=== PATIENT | female | born 1955 | race Caucasian/White ===

== ENCOUNTER 2021-03-09 16:50 | Outpatient (REF) | payer OTHER, SELFPAY ==
[2021-03-09 17:33] LABS: Influenza A PCR NEGATIVE (Negative); Influenza B PCR NEGATIVE (Negative); Resp Syncy Virus RNA Qual PCR NEGATIVE (Negative); SARS COV2 PCR INHOUSE NEGATIVE (Negative)
== END 2021-03-09 16:51 | disposition home or self-care (01) ==
LOC: HO.LNP 16:50
PROVIDERS: Visit Provider Physician Assistant Medical
DX: J06.9 Acute upper respiratory infection, unspecified (principal); Z20.822 Contact with and (suspected) exposure to COVID-19
CPT/HCPCS: 0241U

== ENCOUNTER 2022-05-02 10:32 | Outpatient (REF) | payer MEDICARE, MEDICAID, SELFPAY ==
--- NOTE | ~2022-05-02 | MR_ITS ---
EXAMINATION: MR CERVICAL SPINE WITHOUT CONTRAST CLINICAL INFORMATION: Radiculopathy, cervical region. COMPARISON: None available. TECHNIQUE: MRI of the cervical spine was performed using routine sequences without contrast. FINDINGS: The cervical vertebral bodies maintain normal heights and alignment. There is significant disc height loss at C5-C6 and C6-C7 with chronic degenerative endplate changes. No bone marrow edema is seen. The cervical cord signal appears normal. The imaged portions of the intracranial contents and extraspinal soft tissues are within normal limits. SPINAL LEVELS: C2-C3: No posterior disc abnormality. No spinal canal or neural foraminal stenosis. C3-C4: No posterior disc abnormality. No spinal canal or neural foraminal stenosis. C4-C5: Mild disc osteophyte complex and uncovertebral hypertrophy. Mild spinal canal stenosis. No neural foraminal stenosis. C5-C6: Mild disc osteophyte complex with uncovertebral hypertrophy. Mild to moderate spinal canal stenosis and to moderate bilateral neural foraminal stenosis. C6-C7: Mild disc osteophyte complex with uncovertebral hypertrophy. Mild spinal canal stenosis and mild left neural foraminal stenosis. C7-T1: No posterior disc abnormality. No spinal canal or neural foraminal stenosis. MR/MR cervical spine wo con IMPRESSION: Multilevel degenerative spondylosis most advanced at C5-C6 where there is mild to moderate spinal canal stenosis and moderate bilateral neural foraminal stenosis.
== END 2022-05-02 10:33 | disposition home or self-care (01) ==
LOC: HO.MRI 10:32
PROVIDERS: PCP Internal Medicine; Visit Provider Internal Medicine
DX: M50.20 Other cervical disc displacement, unspecified cervical region (principal); M54.12 Radiculopathy, cervical region
CPT/HCPCS: 72141

== ENCOUNTER 2022-12-14 08:12 | Outpatient (AMB) | payer MEDICARE, MEDICAID, SELFPAY ==
--- NOTE | 2022-12-14 08:34 | MHC.PC.OV ---
Vital Signs 12/14/22 08:35 Height 5 ft 3.5 in Weight 216 lb 4 oz BMI 37.7 BP 120/70 Blood Pressure Location Rt brachial Position Sitting Pulse 75 Pulse Source Pulse Oximeter Pulse Oximetry (%) 98 Oxygen Delivery Method Room Air Intake Visit Reasons: 4 Month follow up Intake Note: pt is here for 4 month follow for her DM Allergies dulaglutide [Trulicity] Adverse Reaction (Unknown, Verified 12/14/22 08:38) abd pain, nausea Medication List - Last Reconciled 12/14/22 by Laura Lagos MD albuterol sulfate 90 mcg/actuation 2 puffs inhalation Q6H PRN 30 days amlodipine 5 mg PO DAILY blood sugar diagnostic (FreeStyle Lite Strips) Use to test blood sugar three times daily blood-glucose meter (FreeStyle Lite Meter kit) As directed citalopram 20 mg PO DAILY insulin degludec (Tresiba FlexTouch U-200 insulin) 80 units (0.4 mL) subcut BEDTIME irbesartan 300 mg PO DAILY lancets (BD Ultra-Fine II Lancets) Use to test blood sugar three times daily metformin 1,000 mg PO BID pen needle, diabetic (BD Ultra-Fine Mini Pen Needle) 1 ea subcut DAILY pravastatin 40 mg PO DAILY semaglutide (Ozempic) 1 mg (0.75 mL) subcut QWEEK Tobacco use date assessed: 12/14/22 Fall risk assessment: No Falls in past year Last assessed Fall Risk: 12/14/22 Dental Screening Dental Screen Date: 12/14/22 Did you have a dental visit in the last 12 months?: Yes Did you have a dental problem in the last 6 months where you did not have access to dental care?: No Was dental information given to patient?: Patient has dentist HPI 4 Month follow up HPI Details Pt presents for FOLLOW-UP OF TYPE 2 DIABETES HYPERTENSION HYPERLIPIDEMIA. Patient has been having difficulties getting Ozempic filled because of the shortage. She has not been monitor her blood glucose regularly. [facility] Medical History Annual physical exam Cervical radiculopathy Colonoscopy refused Depression Hip pain, bilateral HTN (hypertension) Hyperlipidemia Myalgia Normal Pap smear Obstructive sleep apnea Overweight Type 2 diabetes mellitus Surgical History H/O colonoscopy No pertinent past surgical history Family History Father No problems noted. Mother No problems noted. Social History Housing: House Alcohol intake: never Patient Tobacco Use Status: Never used Tobacco e-Cigarette/Vaping Use: Never Used Current occupational status: employed Cognitive needs: No Hearing needs: No Vision needs: Yes Questionnaire Thrive Questionnaire Date Thrive assessed: 08/15/22 AUDIT C Alcohol Use Questionnaire (AUDIT-C) 1. How often do you have a drink containing alcohol?: Never 3. How often do you have six or more drinks on one occasion?: Never Total Score: 0 Score Reviewed/Action Taken: No SERENA-7 AMB Questionnaire SERENA-7 Date SERENA - 7 assessed: 08/15/22 Source: Developed by Drs. Tariq Hdz, Zonia Hays, Matt Saxena and colleagues, with an educational snehal from [employer]. Review of Systems Const All systems reviewed & are unremarkable except as noted in HPI and below Reports no additional complaints Eyes Reports no additional complaints ENT Reports no additional complaints Card Reports no additional complaints Resp Reports no additional complaints GI Reports no additional complaints Reports no additional complaints Physical exam (Primary Care) Vital Signs: Last Vital Signs Pulse 75 12/14/22 08:35 BP 120/70 12/14/22 08:35 Pulse Ox 98 12/14/22 08:35 Oxygen Delivery Method Room Air 12/14/22 08:35 BMI result Body Mass Index 37.7 Tobacco/Smoking Status: Tobacco use Status Tobacco use date assessed 12/14/22 12/14/22 08:42 Patient Tobacco Use Status Never used Tobacco 12/14/22 08:42 e-Cigarette/Vaping Use Never Used 12/14/22 08:42 Thrive Assessment: Date of Thrive Assessment Date Thrive assessed 08/15/22 12/14/22 08:42 Const General: no acute distress HENMT Ears: hearing grossly normal bilaterally Mouth: Normal oral and palatal mucosa present Eyes General: appearance normal, both eyes and all related structures Resp Effort & Inspection: normal respiratory effort Auscultation: clear to auscultation bilaterally Cardio Rhythm: regular rhythm Heart sounds: S1 normal heart sound present and S2 normal heart sound present GI Percussion: Yes normal to percussion Auscultation: normal bowel sounds Assessment and Plan Assessment & Plan (1) Type 2 diabetes mellitus: Comment: insulin dependent, Poorly controlled due to patient's noncompliance with diet, Trulicity caused nausea Code(s): E11.9 - Type 2 diabetes mellitus without complications Plan: A1c is up to 7.4 from 6.5. ADA diet increase physical activity weight loss discussed with the patient. Pt will increase Ozempic to 2 mg and if the fasting blood glucose is less than 80 patient will decrease Tresiba to 70 units (2) Hyperlipidemia: Code(s): E78.5 - Hyperlipidemia, unspecified Plan: Continue statin (3) HTN (hypertension): Code(s): I10 - Essential (primary) hypertension Plan: Continue current medications follow-up in 4 months with a fasting labs before Orders: Orders Comprehensive [place]. Panel Fast 4 Months E11.9 - Type 2 diabetes mellitus without complications, E78.5 - Hyperlipidemia, unspecified, I10 - Essential (primary) hypertension Hemoglobin A1c 4 Months E11.9 - Type 2 diabetes mellitus without complications, E78.5 - Hyperlipidemia, unspecified, I10 - Essential (primary) hypertension Lipid Panel 4 Months E11.9 - Type 2 diabetes mellitus without complications, E78.5 - Hyperlipidemia, unspecified, I10 - Essential (primary) hypertension TSH reflex Free T4 4 Months E11.9 - Type 2 diabetes mellitus without complications, E78.5 - Hyperlipidemia, unspecified, I10 - Essential (primary) hypertension Complete Blood Count Auto Diff 4 Months E11.9 - Type 2 diabetes mellitus without complications, E78.5 - Hyperlipidemia, unspecified, I10 - Essential (primary) hypertension Medications: Changed From semaglutide (Ozempic) 1 mg (0.75 mL) subcut QWEEK 9 mL 3RF To semaglutide (Ozempic) 2 mg (1.5 mL) subcut QWEEK 9 mL 3RF Coding Level of Care Code Est Pt Level 4 (57586) Diagnoses Type 2 diabetes mellitus E11.9 Hyperlipidemia E78.5 HTN (hypertension) I10
[2022-12-14 08:35] VITALS: BP 120/70; PULSE 75; O2SAT 98; BMI 37.7
== END 2022-12-14 09:46 | disposition home or self-care (01) ==
PROVIDERS: Visit Provider Internal Medicine
DX: E11.9 Type 2 diabetes mellitus without complications (principal); E78.5 Hyperlipidemia, unspecified; I10 Essential (primary) hypertension
CPT/HCPCS: 99214

== ENCOUNTER 2023-05-10 11:37 | Outpatient (AMB) | payer MEDICARE, SELFPAY ==
[2023-05-10 11:55] VITALS: BP 120/60; PULSE 89; O2SAT 97; BMI 37.5
--- NOTE | 2023-05-10 11:55 | A.OFFPC_ITS ---
Vital Signs 05/10/23 11:55 Height 5 ft 3.5 in Weight 215 lb BMI 37.5 BP 120/60 Blood Pressure Location Rt brachial Position Sitting Pulse 89 Pulse Source Pulse Oximeter Pulse Oximetry (%) 97 Oxygen Delivery Method Room Air Intake Visit Reasons: 4m follow up Intake Note: Pt is here today for 4 months follow up visit on DM. Allergies dulaglutide [Trulicity] Adverse Reaction (Unknown, Verified 05/10/23 12:16) abd pain, nausea Medication List - Last Reconciled 05/10/23 by Laura Lagos MD albuterol sulfate 90 mcg/actuation 2 puffs inhalation Q6H PRN 30 days amlodipine 5 mg PO DAILY blood sugar diagnostic (FreeStyle Lite Strips) Use to test blood sugar three times daily blood-glucose meter (FreeStyle Lite Meter kit) As directed citalopram 20 mg PO DAILY insulin degludec (Tresiba FlexTouch U-200 insulin) 70 units (0.35 mL) subcut BEDTIME irbesartan 300 mg PO DAILY lancets (BD Ultra-Fine II Lancets) Use to test blood sugar three times daily metformin 1,000 mg PO BID pen needle, diabetic (BD Ultra-Fine Mini Pen Needle) 1 ea subcut DAILY pravastatin 40 mg PO DAILY semaglutide (Ozempic) 2 mg (0.75 mL) subcut QWEEK Tobacco use date assessed: 05/10/23 [facility], [facility] Medical History Annual physical exam Cervical radiculopathy Colonoscopy refused Depression Hip pain, bilateral HTN (hypertension) Hyperlipidemia Myalgia Normal Pap smear Obstructive sleep apnea Overweight Type 2 diabetes mellitus Surgical History H/O colonoscopy No pertinent past surgical history Family History Father No problems noted. Mother No problems noted. Social History Housing: House Alcohol intake: never Patient Tobacco Use Status: Never used Tobacco e-Cigarette/Vaping Use: Never Used Current occupational status: employed Cognitive needs: No Hearing needs: No Vision needs: Yes Questionnaire Thrive Questionnaire Date Thrive assessed: 08/15/22 SERENA-7 AMB Questionnaire SERENA-7 Date SERENA - 7 assessed: 08/15/22 Source: Developed by DrsMj Hdz, Zonia Hays, Matt Saxean and colleagues, with an educational snehal from [employer]. Physical exam (Primary Care) Vital Signs: Last Vital Signs Pulse 89 05/10/23 11:55 BP 120/60 05/10/23 11:55 Pulse Ox 97 05/10/23 11:55 Oxygen Delivery Method Room Air 05/10/23 11:55 BMI result Body Mass Index 37.5 Tobacco/Smoking Status: Tobacco use Status Tobacco use date assessed 05/10/23 05/10/23 12:16 Patient Tobacco Use Status Never used Tobacco 05/10/23 11:55 e-Cigarette/Vaping Use Never Used 05/10/23 11:55 Thrive Assessment: Date of Thrive Assessment Date Thrive assessed 08/15/22 05/10/23 11:55 Assessment and Plan Assessment & Plan (1) Type 2 diabetes mellitus: Comment: insulin dependent, Poorly controlled due to patient's noncompliance with diet, Trulicity caused nausea Code(s): E11.9 - Type 2 diabetes mellitus without complications Plan: A1C is 7.2, ADA, weight loss, exercise , add Jardiance 10 mg and cont current meds (2) Hyperlipidemia: Code(s): E78.5 - Hyperlipidemia, unspecified Plan: CONTINUE STATIN (3) HTN (hypertension): Code(s): I10 - Essential (primary) hypertension Plan: Continue current medications. Patient requested to follow-up in 5 month with a fasting labs before Orders: Orders Comprehensive [place]. Panel Fast 5 Months E11.9 - Type 2 diabetes mellitus without complications, E78.5 - Hyperlipidemia, unspecified, I10 - Essential (primary) hypertension Complete Blood Count Auto Diff 5 Months E11.9 - Type 2 diabetes mellitus without complications, E78.5 - Hyperlipidemia, unspecified, I10 - Essential (primary) hypertension Lipid Panel 5 Months E11.9 - Type 2 diabetes mellitus without complications, E78.5 - Hyperlipidemia, unspecified, I10 - Essential (primary) hypertension Microalbumin, Random (w Creat) 5 Months E11.9 - Type 2 diabetes mellitus without complications, E78.5 - Hyperlipidemia, unspecified, I10 - Essential (primary) hypertension Hemoglobin A1c 5 Months E11.9 - Type 2 diabetes mellitus without complications, E78.5 - Hyperlipidemia, unspecified, I10 - Essential (primary) hypertension Medications: New Jardiance (empagliflozin) 10 mg PO DAILY 90 tabs 3RF NS Changed From insulin degludec (Tresiba FlexTouch U-200 insulin) 80 units (0.4 mL) subcut BEDTIME 36 mL 3RF To insulin degludec (Tresiba FlexTouch U-200 insulin) 70 units (0.35 mL) subcut BEDTIME 36 mL 3RF Coding Level of Care Code Est Pt Level 4 (54483) Diagnoses Type 2 diabetes mellitus E11.9 Hyperlipidemia E78.5 HTN (hypertension) I10
== END 2023-05-10 13:37 | disposition home or self-care (01) ==
PROVIDERS: PCP Internal Medicine; Visit Provider Internal Medicine
DX: E11.9 Type 2 diabetes mellitus without complications (principal); E78.5 Hyperlipidemia, unspecified; I10 Essential (primary) hypertension
CPT/HCPCS: 99214

== ENCOUNTER 2023-10-17 08:06 | Outpatient (AMB) | payer MEDICARE, SELFPAY ==
--- NOTE | 2023-10-17 08:23 | MHC.PC.OV ---
Vital Signs 10/17/23 08:24 10/17/23 08:47 Height 5 ft 3.5 in Weight 218 lb BMI 38.0 BP 110/68 136/72 Blood Pressure Location Rt brachial Lt brachial Position Sitting Sitting Pulse 76 Pulse Source Pulse Oximeter Pulse Oximetry (%) 98 Oxygen Delivery Method Room Air Intake Visit Reasons: Follow up on DM Intake Note: Pt is here today for a follow up visit. Allergies empagliflozin [From Jardiance] Adverse Reaction (Intermediate, Verified 10/17/23 08:43) Candidiasis dulaglutide [Trulicity] Adverse Reaction (Unknown, Verified 10/17/23 08:43) abd pain, nausea Medication List - Last Reconciled 10/17/23 by Laura Lagos MD albuterol sulfate 90 mcg/actuation 2 puffs inhalation Q6H PRN 30 days amlodipine 5 mg PO DAILY blood sugar diagnostic (FreeStyle Lite Strips) Use to test blood sugar three times daily blood-glucose meter (FreeStyle Lite Meter kit) As directed citalopram 20 mg PO DAILY fluconazole 150 mg PO Q3D 2 doses insulin degludec (Tresiba FlexTouch U-200 insulin) 70 units (0.35 mL) subcut BEDTIME irbesartan 300 mg PO DAILY lancets (BD Ultra-Fine II Lancets) Use to test blood sugar three times daily metformin 1,000 mg PO BID pen needle, diabetic (BD Ultra-Fine Mini Pen Needle) 1 ea subcut DAILY pravastatin 40 mg PO DAILY semaglutide (Ozempic) 0.5 mg (0.736 mL) subcut QWEEK Tobacco use date assessed: 10/17/23 Fall risk assessment: No Falls in past year Last assessed Fall Risk: 10/17/23 Dental Screening Dental Screen Date: 10/17/23 Did you have a dental visit in the last 12 months?: Yes Did you have a dental problem in the last 6 months where you did not have access to dental care?: No Was dental information given to patient?: Patient has dentist HPI Follow up on DM HPI Details Patient presents for the follow-up on type 2 diabetes hypertension hyperlipidemia. She has been taking Ozempic 0.5 mg for the last month and tolerating well. Patient has not been monitoring her blood glucose. She denies symptomatic hypoglycemia. [facility] Medical History Colonoscopy refused Hip pain, bilateral Cervical radiculopathy Myalgia Normal Pap smear Obstructive sleep apnea Annual physical exam Depression Overweight Hyperlipidemia HTN (hypertension) Type 2 diabetes mellitus Surgical History H/O colonoscopy No pertinent past surgical history Family History Father No problems noted. Mother No problems noted. Social History Housing: House Alcohol intake: never Patient Tobacco Use Status: Never used Tobacco e-Cigarette/Vaping Use: Never Used service: No Current occupational status: employed Cognitive needs: No Hearing needs: No Vision needs: Yes Questionnaire PHQ-9 Over the last 2 weeks, how often have you been bothered by any of the following problems? 1. Little interest or pleasure in doing things: not at all 2. Feeling down, depressed, or hopeless: not at all 3. Trouble falling or staying asleep, or sleeping too much: not at all 4. Feeling tired or having little energy: not at all 5. Poor appetite or overeating: not at all 6. Feeling bad about yourself - or that you are a failure or have let yourself or your family down: not at all 7. Trouble concentrating on things, such as reading the newspaper or watching television: not at all 8. Moving or speaking so slowly that other people could have noticed. Or the opposite - being so fidgety or restless that you have been moving around a lot more than usual: not at all 9. Thoughts that you would be better off or of hurting yourself in some way: not at all Total score: 0 Depression Screening Interpretation: Negative Depression Screening Done: Yes Source: Developed by Drs. Tariq Hdz, Zonia Hays, Matt Saxena and colleagues, with an educational snehal from [employer]. Thrive Questionnaire Date Thrive assessed: 10/17/23 I am a: Patient What is your living situation today?: I have a steady place to live Within the past 12 months, did the food you bought not last and you didn't have the money to get more?: Never true Within the past 12 months, did you worry whether your food would run out before you got money to buy more?: Never true Do you have trouble paying for medicines?: No Do you have trouble getting transportation to medical appointments?: No Do you have trouble paying your heating and electricity bill?: No Do you have trouble taking care of your child, family member or friend?: No Do you have trouble with day-to-day activities such as bathing, preparing meals, shopping, managing finances, etc.?: No Are you currently unemployed and looking for a job?: No Are you interested in more education?: No Please select the resources that you would like help with: None THRIVE Score: 0 AUDIT C Alcohol Use Questionnaire (AUDIT-C) 1. How often do you have a drink containing alcohol?: Never 3. How often do you have six or more drinks on one occasion?: Never Total Score: 0 SERENA-7 AMB Questionnaire SERENA-7 Date SERENA - 7 assessed: 10/17/23 Feeling nervous, anxious, or on edge: 0 = Not at all Not being able to stop or control worryin = Not at all Worrying too much about different things: 0 = Not at all Trouble relaxin = Not at all Being so restless that it is hard to sit still: 0 = Not at all Becoming easily annoyed or irritable: 0 = Not at all Feeling afraid as if something awful might happen: 0 = Not at all Total SERENA-7 score (0-4 normal; 5-9 mild; 10-14 moderate; 15-21 severe): 0 Source: Developed by Drs. Tariq Hdz, Zonia Hays, Matt Saxena and colleagues, with an educational snehal from [employer]. Review of Systems Const All systems reviewed & are unremarkable except as noted in HPI and below Eyes Reports no additional complaints ENT Reports no additional complaints Card Reports no additional complaints Resp Reports no additional complaints GI Reports no additional complaints Reports no additional complaints Physical exam (Primary Care) Vital Signs: Last Vital Signs Pulse 76 10/17/23 08:24 BP 136/72 10/17/23 08:47 Pulse Ox 98 10/17/23 08:24 Oxygen Delivery Method Room Air 10/17/23 08:24 BMI result Body Mass Index 38.0 Tobacco/Smoking Status: Tobacco use Status Tobacco use date assessed 10/17/23 10/17/23 08:45 Patient Tobacco Use Status Never used Tobacco 10/17/23 08:45 e-Cigarette/Vaping Use Never Used 10/17/23 08:23 PHQ-9: PHQ-9 Score PHQ-9: Total score 0 10/17/23 08:48 Depression Screening Interpretation: Negative Thrive Assessment: Date of Thrive Assessment Date Thrive assessed 10/17/23 10/17/23 08:48 Const General: no acute distress HENMT Head: Yes normal to inspection Face and sinus: Yes normal facial exam Eyes General: appearance normal, both eyes and all related structures Neck Neck: Yes supple Resp Effort & Inspection: normal respiratory effort Auscultation: clear to auscultation bilaterally Cardio Rhythm: regular rhythm Heart sounds: S1 normal heart sound present and S2 normal heart sound present GI Inspection: Yes normal to inspection Palpation (GI): Soft to palpation Percussion: Yes normal to percussion Auscultation: normal bowel sounds Assessment and Plan Assessment & Plan (1) Type 2 diabetes mellitus: Comment: insulin dependent, Poorly controlled due to patient's noncompliance with diet, Trulicity caused nausea, patient is tolerating Ozempic, she refused Dexcom monitor Code(s): E11.9 - Type 2 diabetes mellitus without complications Plan: A1c is 8.8, ADA diet increase exercise weight loss discussed with the patient she will continue metformin insulin and increase Ozempic to 1 mg weekly. (2) HTN (hypertension): Code(s): I10 - Essential (primary) hypertension Plan: Continue current medications (3) Hyperlipidemia: Code(s): E78.5 - Hyperlipidemia, unspecified Plan: Continue statin Orders: Orders Comprehensive [place]. Panel Fast 3 Months E11.9 - Type 2 diabetes mellitus without complications Hemoglobin A1c 3 Months E11.9 - Type 2 diabetes mellitus without complications Medications: New semaglutide (Ozempic) 1 mg (0.75 mL) subcut QWEEK 9 mL 0RF Discontinued semaglutide (Ozempic) Discontinued Reason: Doctor's Order 0.5 mg (0.736 mL) subcut QWEEK 9 mL 1RF Coding Level of Care Code Est Pt Level 4 (15000) Diagnoses Type 2 diabetes mellitus E11.9 HTN (hypertension) I10 Hyperlipidemia E78.5
[2023-10-17 08:24] VITALS: BP 110/68; PULSE 76; O2SAT 98; BMI 38.0
[2023-10-17 08:47] VITALS: BP 136/72
== END 2023-10-17 09:30 | disposition home or self-care (01) ==
PROVIDERS: PCP Internal Medicine; Visit Provider Internal Medicine
DX: E11.69 Type 2 diabetes mellitus with other specified complication (principal); I10 Essential (primary) hypertension; E78.5 Hyperlipidemia, unspecified
CPT/HCPCS: 99214

== ENCOUNTER 2024-01-17 09:19 | Outpatient (AMB) | payer MEDICARE, SELFPAY ==
[2024-01-17 09:24] VITALS: BP 124/60; PULSE 79; O2SAT 99; BMI 37.3
--- NOTE | 2024-01-17 09:24 | MHC.PC.OV ---
Vital Signs 01/17/24 09:24 Height 5 ft 3.5 in Weight 214 lb BMI 37.3 BP 124/60 Blood Pressure Location Rt brachial Position Sitting Pulse 79 Pulse Source Pulse Oximeter Pulse Oximetry (%) 99 Oxygen Delivery Method Room Air Intake Visit Reasons: PE. Intake Note: Pt is here today for PE Allergies empagliflozin [From Jardiance] Adverse Reaction (Intermediate, Verified 01/17/24 09:27) Candidiasis dulaglutide [Trulicity] Adverse Reaction (Unknown, Verified 01/17/24 09:27) abd pain, nausea Medication List - Last Reconciled 01/17/24 by Laura Lagos MD albuterol sulfate 90 mcg/actuation 2 puffs inhalation Q6H PRN 30 days amlodipine 5 mg PO DAILY blood sugar diagnostic (FreeStyle Lite Strips) Use to test blood sugar three times daily blood-glucose meter (FreeStyle Lite Meter kit) As directed citalopram 20 mg PO DAILY fluconazole 150 mg PO Q3D 2 doses insulin degludec (Tresiba FlexTouch U-200 insulin) 70 units (0.35 mL) subcut BEDTIME irbesartan 300 mg PO DAILY lancets (BD Ultra-Fine II Lancets) Use to test blood sugar three times daily metformin 1,000 mg PO BID pen needle, diabetic (BD Ultra-Fine Mini Pen Needle) 1 ea subcut DAILY pravastatin 40 mg PO DAILY semaglutide (Ozempic) 1 mg (0.75 mL) subcut QWEEK Tobacco use date assessed: 01/17/24 Fall risk assessment: No Falls in past year Last assessed Fall Risk: 01/17/24 Dental Screening Dental Screen Date: 10/17/23 HPI PE. HPI Details Pt presents for PE. PFSH Medical History Colonoscopy refused Hip pain, bilateral Cervical radiculopathy Myalgia Normal Pap smear Obstructive sleep apnea Annual physical exam Depression Overweight Hyperlipidemia HTN (hypertension) Type 2 diabetes mellitus Surgical History H/O colonoscopy No pertinent past surgical history Family History Father No problems noted. Mother No problems noted. Social History Housing: House Alcohol intake: never Patient Tobacco Use Status: Never used Tobacco e-Cigarette/Vaping Use: Never Used service: No Current occupational status: employed Cognitive needs: No Hearing needs: No Vision needs: Yes Questionnaire PHQ-9 Over the last 2 weeks, how often have you been bothered by any of the following problems? 1. Little interest or pleasure in doing things: not at all 2. Feeling down, depressed, or hopeless: not at all 3. Trouble falling or staying asleep, or sleeping too much: nearly every day 4. Feeling tired or having little energy: not at all 5. Poor appetite or overeating: more than half the days 6. Feeling bad about yourself - or that you are a failure or have let yourself or your family down: not at all 7. Trouble concentrating on things, such as reading the newspaper or watching television: not at all 8. Moving or speaking so slowly that other people could have noticed. Or the opposite - being so fidgety or restless that you have been moving around a lot more than usual: not at all 9. Thoughts that you would be better off or of hurting yourself in some way: not at all Total score: 5 Depression Screening Interpretation: Negative Depression Screening Done: Yes 61041 - PHQ-9 Billing: Yes Source: Developed by Drs. Tariq Hdz, Zonia Hays, Matt Saxena and colleagues, with an educational snehal from [employer]. Thrive Questionnaire Date Thrive assessed: 01/17/24 I am a: Patient What is your living situation today?: I have a steady place to live Within the past 12 months, did the food you bought not last and you didn't have the money to get more?: Never true Within the past 12 months, did you worry whether your food would run out before you got money to buy more?: Never true Do you have trouble paying for medicines?: No Do you have trouble getting transportation to medical appointments?: No Do you have trouble paying your heating and electricity bill?: No Do you have trouble taking care of your child, family member or friend?: No Do you have trouble with day-to-day activities such as bathing, preparing meals, shopping, managing finances, etc.?: No Are you currently unemployed and looking for a job?: No Are you interested in more education?: No Please select the resources that you would like help with: None Currently or been in a relationship where the following occur: No concerns reported THRIVE Score: 0 AUDIT C Alcohol Use Questionnaire (AUDIT-C) 1. How often do you have a drink containing alcohol?: Never 3. How often do you have six or more drinks on one occasion?: Never Total Score: 0 SERENA-7 AMB Questionnaire SERENA-7 Date SERENA - 7 assessed: 01/17/24 Feeling nervous, anxious, or on edge: 0 = Not at all Not being able to stop or control worryin = Several days Worrying too much about different things: 1 = Several days Trouble relaxin = Not at all Being so restless that it is hard to sit still: 0 = Not at all Becoming easily annoyed or irritable: 0 = Not at all Feeling afraid as if something awful might happen: 0 = Not at all Total SERENA-7 score (0-4 normal; 5-9 mild; 10-14 moderate; 15-21 severe): 2 Source: Developed by Drs. Tariq Hdz, Zonia Hays, Matt Saxena and colleagues, with an educational snehal from [employer]. SERENA-7 Assessment Billing SERENA-7 Assessment Tool: SERENA-7 Assessment 31268 Review of Systems Const All systems reviewed & are unremarkable except as noted in HPI and below Reports no additional complaints Eyes Reports no additional complaints ENT Reports no additional complaints Card Reports no additional complaints Resp Reports no additional complaints GI Reports no additional complaints Reports no additional complaints Physical exam (Primary Care) Vital Signs: Last Vital Signs Pulse 79 01/17/24 09:24 BP 124/60 01/17/24 09:24 Pulse Ox 99 01/17/24 09:24 Oxygen Delivery Method Room Air 01/17/24 09:24 BMI result Body Mass Index 37.3 Tobacco/Smoking Status: Tobacco use Status Tobacco use date assessed 01/17/24 01/17/24 09:29 Patient Tobacco Use Status Never used Tobacco 01/17/24 09:29 e-Cigarette/Vaping Use Never Used 01/17/24 09:24 PHQ-9: PHQ-9 Score PHQ-9: Total score 5 01/17/24 09:32 Depression Screening Interpretation: Negative Thrive Assessment: Date of Thrive Assessment Date Thrive assessed 01/17/24 01/17/24 09:32 Currently or been in a relationship where the following occur: No concerns reported Const General: no acute distress HENMT Head: Yes normal to inspection Face and sinus: Yes normal facial exam Throat: Yes posterior oropharynx normal Eyes General: appearance normal, both eyes and all related structures Neck Neck: Yes supple Resp Effort & Inspection: normal respiratory effort Auscultation: clear to auscultation bilaterally Cardio Rhythm: regular rhythm Heart sounds: S1 normal heart sound present and S2 normal heart sound present GI Inspection: Yes normal to inspection Palpation (GI): Soft to palpation Percussion: Yes normal to percussion Auscultation: normal bowel sounds Extrem Other: Diabetic foot exam; skin is intact monofilament and vibration sensation intact bilaterally General: Yes no clubbing, cyanosis or edema Assessment and Plan Assessment & Plan (1) Type 2 diabetes mellitus: Comment: insulin dependent, Poorly controlled due to patient's noncompliance with diet, Trulicity caused nausea, patient is tolerating Ozempic, she refused Dexcom monitor Code(s): E11.9 - Type 2 diabetes mellitus without complications Plan: A1C is pending, patient will increase Ozempic to 2 mg and decrease Tresiba to 60 units. She will continue to monitor her fasting blood glucose to keep it between 70 and 120, follow-up in 4 months with a fasting labs before (2) HTN (hypertension): Code(s): I10 - Essential (primary) hypertension Plan: Continue Irbesartan (3) Annual physical exam: Code(s): Z00.00 - Encounter for general adult medical examination without abnormal findings Plan: Well-balanced diet regular physical activity weight loss discussed with the patient she is up-to-date with the mammogram colonoscopy and diabetic eye exam Orders: Orders Comprehensive [place]. Panel Fast 4 Months E11.9 - Type 2 diabetes mellitus without complications, E78.5 - Hyperlipidemia, unspecified, I10 - Essential (primary) hypertension Lipid Panel 4 Months E11.9 - Type 2 diabetes mellitus without complications, E78.5 - Hyperlipidemia, unspecified, I10 - Essential (primary) hypertension Microalbumin, Random (w Creat) 4 Months E11.9 - Type 2 diabetes mellitus without complications, E78.5 - Hyperlipidemia, unspecified, I10 - Essential (primary) hypertension Hemoglobin A1c 4 Months E11.9 - Type 2 diabetes mellitus without complications, E78.5 - Hyperlipidemia, unspecified, I10 - Essential (primary) hypertension Medications: New semaglutide (Ozempic) 2 mg (0.75 mL) subcut QWEEK 9 mL 1RF Discontinued semaglutide (Ozempic) Discontinued Reason: Doctor's Order 1 mg (0.75 mL) subcut QWEEK 9 mL 0RF Coding Level of Care Code Est Pt Prev Care >65y(72021) Diagnoses Type 2 diabetes mellitus E11.9 HTN (hypertension) I10 Annual physical exam Z00.00 Additional Codes SERENA-7 Assessment Billing - SERENA-7 Assessment Tool: SERENA-7 Assessment 97243 ([id number])
== END 2024-01-17 10:06 | disposition home or self-care (01) ==
PROVIDERS: PCP Internal Medicine; Visit Provider Internal Medicine
DX: Z00.00 Encounter for general adult medical examination without abnormal findings (principal); E11.9 Type 2 diabetes mellitus without complications; I10 Essential (primary) hypertension
CPT/HCPCS: 99397

== ENCOUNTER 2024-05-14 09:32 | Outpatient (AMB) | payer MEDICARE, SELFPAY ==
[2024-05-14 09:34] VITALS: BP 124/70; PULSE 67; O2SAT 98; BMI 37.0
--- NOTE | 2024-05-14 09:34 | A.OFFPC_ITS ---
Vital Signs 05/14/24 09:34 Height 5 ft 3.5 in Weight 212 lb BMI 37.0 BP 124/70 Blood Pressure Location Rt brachial Position Sitting Pulse 67 Pulse Source Pulse Oximeter Pulse Oximetry (%) 98 Oxygen Delivery Method Room Air Intake Visit Reasons: 4 month Allergies empagliflozin [From Jardiance] Adverse Reaction (Intermediate, Verified 05/14/24 09:42) Candidiasis dulaglutide [Trulicity] Adverse Reaction (Unknown, Verified 05/14/24 09:42) abd pain, nausea Medication List - Last Reconciled 05/14/24 by Laura Lagos MD albuterol sulfate 90 mcg/actuation 2 puffs inhalation Q6H PRN 30 days amlodipine 5 mg PO DAILY blood sugar diagnostic (FreeStyle Lite Strips) Use to test blood sugar three times daily blood-glucose meter (FreeStyle Lite Meter kit) As directed citalopram 20 mg PO DAILY fluconazole 150 mg PO Q3D 2 doses insulin degludec (Tresiba FlexTouch U-200 insulin) 70 units (0.35 mL) subcut BEDTIME irbesartan 300 mg PO DAILY lancets (BD Ultra-Fine II Lancets) Use to test blood sugar three times daily metformin 1,000 mg PO BID pen needle, diabetic (BD Ultra-Fine Mini Pen Needle) 1 ea subcut DAILY pravastatin 40 mg PO DAILY semaglutide (Ozempic) 2 mg (0.75 mL) subcut QWEEK Tobacco use date assessed: 05/14/24 Dental Screening Dental Screen Date: 05/14/24 Did you have a dental visit in the last 12 months?: Yes Did you have a dental problem in the last 6 months where you did not have access to dental care?: No Was dental information given to patient?: Patient has dentist HPI 4 month HPI Details Pt presents for f/u IDDM, HTN, hyperlipid, stable on meds. PFSH Medical History Colonoscopy refused Hip pain, bilateral Cervical radiculopathy Myalgia Normal Pap smear Obstructive sleep apnea Annual physical exam Depression Overweight Hyperlipidemia HTN (hypertension) Type 2 diabetes mellitus Surgical History H/O colonoscopy No pertinent past surgical history Family History Father No problems noted. Mother No problems noted. Social History Housing: House Alcohol intake: never Patient Tobacco Use Status: Never used Tobacco e-Cigarette/Vaping Use: Never Used service: No Current occupational status: employed Cognitive needs: No Hearing needs: No Vision needs: Yes Questionnaire Thrive Questionnaire Date Thrive assessed: 01/17/24 I am a: Patient What is your living situation today?: I have a steady place to live Within the past 12 months, did the food you bought not last and you didn't have the money to get more?: Never true Within the past 12 months, did you worry whether your food would run out before you got money to buy more?: Never true Do you have trouble paying for medicines?: No Do you have trouble getting transportation to medical appointments?: No Do you have trouble paying your heating and electricity bill?: No Do you have trouble taking care of your child, family member or friend?: No Do you have trouble with day-to-day activities such as bathing, preparing meals, shopping, managing finances, etc.?: No Are you currently unemployed and looking for a job?: No Are you interested in more education?: No Please select the resources that you would like help with: None Currently or been in a relationship where the following occur: No concerns reported THRIVE Score: 0 AUDIT C Alcohol Use Questionnaire (AUDIT-C) 1. How often do you have a drink containing alcohol?: Never 3. How often do you have six or more drinks on one occasion?: Never Total Score: 0 SERENA-7 AMB Questionnaire SERENA-7 Date SERENA - 7 assessed: 01/17/24 Source: Developed by Drs. Tariq Hdz, Zonia Hays, Matt Saxena and colleagues, with an educational snehal from [employer]. Physical exam (Primary Care) Vital Signs: Last Vital Signs Pulse 67 05/14/24 09:34 BP 124/70 05/14/24 09:34 Pulse Ox 98 05/14/24 09:34 Oxygen Delivery Method Room Air 05/14/24 09:34 BMI result Body Mass Index 37.0 Tobacco/Smoking Status: Tobacco use Status Tobacco use date assessed 05/14/24 05/14/24 09:44 Patient Tobacco Use Status Never used Tobacco 05/14/24 09:34 e-Cigarette/Vaping Use Never Used 05/14/24 09:34 Thrive Assessment: Date of Thrive Assessment Date Thrive assessed 01/17/24 05/14/24 09:34 Currently or been in a relationship where the following occur: No concerns reported Const General: no acute distress HENMT Head: Yes normal to inspection Ears: hearing grossly normal bilaterally Mouth: Normal oral and palatal mucosa present Eyes General: appearance normal, both eyes and all related structures Neck Neck: Yes no lymphadenopathy and Yes supple Resp Effort & Inspection: normal respiratory effort Auscultation: clear to auscultation bilaterally Cardio Rhythm: regular rhythm Heart sounds: S1 normal heart sound present and S2 normal heart sound present GI Inspection: Yes normal to inspection Palpation (GI): Soft to palpation Percussion: Yes normal to percussion Auscultation: normal bowel sounds Coding Level of Care Code Est Pt Level 4 (01154) Diagnoses Type 2 diabetes mellitus E11.9 Hyperlipidemia E78.5 HTN (hypertension) I10 Assessment & Plan Assessment & Plan (1) Type 2 diabetes mellitus: Comment: insulin dependent, Poorly controlled due to patient's noncompliance with diet, Trulicity caused nausea, patient is tolerating Ozempic, she refused Dexcom monitor Code(s): E11.9 - Type 2 diabetes mellitus without complications Category: Medical Plan: A1c is pending. Patient reports fasting glucose between 80-110. She has been following ADA diet and continue to take medications. (2) Hyperlipidemia: Code(s): E78.5 - Hyperlipidemia, unspecified Category: Medical Plan: Continue statin (3) HTN (hypertension): Code(s): I10 - Essential (primary) hypertension Category: Medical Plan: Continue current medications Orders: Orders Complete Blood Count Auto Diff 4 Months E11.9 - Type 2 diabetes mellitus without complications, Z00.00 - Encounter for general adult medical examination without abnormal findings Medications: Changed From insulin degludec (Tresiba FlexTouch U-200 insulin) 70 units (0.35 mL) subcut BEDTIME 36 mL 3RF To insulin degludec (Tresiba FlexTouch U-200 insulin) 80 units (0.4 mL) subcut BEDTIME 36 mL 3RF Refilled citalopram 20 mg PO DAILY 90 tabs 3RF irbesartan 300 mg PO DAILY 90 tabs 3RF I10 - Essential (primary) hypertension semaglutide (Ozempic) 2 mg (0.75 mL) subcut QWEEK 9 mL 3RF amlodipine 5 mg PO DAILY 90 tabs 3RF
== END 2024-05-14 10:15 | disposition home or self-care (01) ==
PROVIDERS: PCP Internal Medicine; Visit Provider Internal Medicine
DX: E11.9 Type 2 diabetes mellitus without complications (principal); E78.5 Hyperlipidemia, unspecified; I10 Essential (primary) hypertension

== ENCOUNTER → 2024-05-14 09:32 | Outpatient (BNVA) | payer MEDICARE, SELFPAY | PROVIDERS: PCP Internal Medicine; Visit Provider Internal Medicine | DX: E11.9 Type 2 diabetes mellitus without complications (principal); E78.5 Hyperlipidemia, unspecified; I10 Essential (primary) hypertension | CPT/HCPCS: 99212 ==

== ENCOUNTER 2024-09-11 09:27 | Outpatient (REF) | payer MEDICARE, SELFPAY ==
[2024-09-11 13:20] LABS: MANUAL DIFF FLAG NO
[2024-09-11 13:21] LABS: Basophils Absolute Auto 0.1 X10*3/uL (0.0-0.2); Basophils Percent Auto 0.7 % (0-2); Eosinophils Absolute Auto 0.2 X10*3/uL (0.0-0.4); Eosinophils Percent Auto 2.4 % (0-4); Hematocrit 38.6 % (37.0-47.0); Hemoglobin 12.4 g/dl (12.0-16.0); Imm Gran Abs Auto 0.02 X10*3/uL (0.00-0.03); Imm Gran Pct Auto 0.3 % (0.0-0.4); Lymphocytes Absolute Auto 2.6 X10*3/uL (1.2-4.9); Lymphocytes Percent Auto 34.1 % (20-40); Mean Corpuscular HGB Conc 32.1 g/dl (31.0-35.0); Mean Corpuscular Hemoglobin 28.4 pg (27.0-33.0); Mean Corpuscular Volume 88.5 fL (80.0-98.0); Mean Platelet Volume 10.2 fL (9.4-12.3); Monocytes Absolute Auto 0.5 X10*3/uL (0.1-1.2); Monocytes Percent Auto 7.2 % (2-11); Neutrophils Absolute Auto 4.2 x10*3/uL (2.0-8.3); Neutrophils Percent Auto 55.3 % (45-73); Platelet Count 288 X10*3/uL (160-400); Red Blood Count 4.36 X10*6/uL (4.20-5.50); Red Cell Distribution Width 13.1 % (11.0-16.0); White Blood Count 7.5 X10*3/uL (4.8-10.8)
== END 2024-09-11 09:28 | disposition home or self-care (01) ==
LOC: HO.HMGCLDS 09:27
PROVIDERS: PCP Internal Medicine; Visit Provider Internal Medicine
DX: Z00.00 Encounter for general adult medical examination without abnormal findings (principal); E11.9 Type 2 diabetes mellitus without complications
CPT/HCPCS: 36415; 85025

== ENCOUNTER 2024-09-18 13:22 | Outpatient (AMB) | payer MEDICARE, SELFPAY ==
[2024-09-18 13:25] VITALS: BP 108/64; PULSE 74; TEMP 36.6; O2SAT 96; BMI 37.0
--- NOTE | 2024-09-18 13:25 | A.OFFPC_ITS ---
Vital Signs 09/18/24 13:25 Height 5 ft 3.5 in Weight 212 lb BMI 37.0 BP 108/64 Blood Pressure Location Rt brachial Position Sitting Pulse 74 Pulse Source Pulse Oximeter Temp 97.8 F Temp Source Oral Pulse Oximetry (%) 96 Oxygen Delivery Method Room Air Intake Visit Reasons: 4 months follow up visit Intake Note: Pt is here today for 4 months follow up visit. Allergies empagliflozin [From Jardiance] Adverse Reaction (Intermediate, Verified 09/18/24 13:29) Candidiasis dulaglutide [Trulicity] Adverse Reaction (Unknown, Verified 09/18/24 13:29) abd pain, nausea Medication List - Last Reconciled 09/18/24 by Laura Lagos MD albuterol sulfate 90 mcg/actuation 2 puffs inhalation Q6H PRN 30 days amlodipine 5 mg PO DAILY blood sugar diagnostic (FreeStyle Lite Strips) Use to test blood sugar three times daily blood-glucose meter (FreeStyle Lite Meter kit) As directed citalopram 20 mg PO DAILY fluconazole 150 mg PO Q3D 2 doses insulin degludec (Tresiba FlexTouch U-200 insulin) 80 units (0.4 mL) subcut BEDTIME irbesartan 300 mg PO DAILY lancets (BD Ultra-Fine II Lancets) Use to test blood sugar three times daily metformin 1,000 mg PO BID pen needle, diabetic (BD Ultra-Fine Mini Pen Needle) 1 ea subcut DAILY pravastatin 40 mg PO DAILY semaglutide (Ozempic) 2 mg (0.75 mL) subcut QWEEK Tobacco use date assessed: 09/18/24 Last assessed Fall Risk: 09/18/24 Dental Screening Dental Screen Date: 09/18/24 Did you have a dental visit in the last 12 months?: Yes Did you have a dental problem in the last 6 months where you did not have access to dental care?: No Was dental information given to patient?: Patient has dentist HPI 4 months follow up visit HPI Details Pt presents for f/u DM2, HTN, hyperlipid, stable on meds. Patient could not afford Ozempic PFSH Medical History Colonoscopy refused Hip pain, bilateral Cervical radiculopathy Myalgia Normal Pap smear Obstructive sleep apnea Annual physical exam Depression Overweight Hyperlipidemia HTN (hypertension) Type 2 diabetes mellitus Surgical History H/O colonoscopy No pertinent past surgical history Family History Father No problems noted. Mother No problems noted. Social History Housing: House Alcohol intake: never Patient Tobacco Use Status: Never used Tobacco e-Cigarette/Vaping Use: Never Used service: No Current occupational status: employed Cognitive needs: No Hearing needs: No Vision needs: Yes Questionnaire PHQ-9 Over the last 2 weeks, how often have you been bothered by any of the following problems? 1. Little interest or pleasure in doing things: not at all 2. Feeling down, depressed, or hopeless: not at all 3. Trouble falling or staying asleep, or sleeping too much: several days 4. Feeling tired or having little energy: several days 5. Poor appetite or overeating: not at all 6. Feeling bad about yourself - or that you are a failure or have let yourself or your family down: not at all 7. Trouble concentrating on things, such as reading the newspaper or watching television: not at all 8. Moving or speaking so slowly that other people could have noticed. Or the opposite - being so fidgety or restless that you have been moving around a lot more than usual: not at all 9. Thoughts that you would be better off or of hurting yourself in some way: not at all Total score: 2 Depression Screening Interpretation: Negative Depression Screening Done: Yes 42112 - PHQ-9 Billing: Yes Source: Developed by Drs. Tariq Hdz, Zonia Hays, Matt Saxena and colleagues, with an educational snehal from [email or web address]. Thrive Questionnaire Date Thrive assessed: 09/18/24 I am a: Patient What is your living situation today?: I have a steady place to live Within the past 12 months, did the food you bought not last and you didn't have the money to get more?: Never true Within the past 12 months, did you worry whether your food would run out before you got money to buy more?: Never true Do you have trouble paying for medicines?: Yes Do you have trouble getting transportation to medical appointments?: No Do you have trouble paying your heating and electricity bill?: No Do you have trouble taking care of your child, family member or friend?: No Do you have trouble with day-to-day activities such as bathing, preparing meals, shopping, managing finances, etc.?: No Are you currently unemployed and looking for a job?: No Are you interested in more education?: No Please select the resources that you would like help with: None Currently or been in a relationship where the following occur: No concerns reported THRIVE Score: 0 AUDIT C Alcohol Use Questionnaire (AUDIT-C) 1. How often do you have a drink containing alcohol?: Never 3. How often do you have six or more drinks on one occasion?: Never Total Score: 0 SERENA-7 AMB Questionnaire SERENA-7 Date SERENA - 7 assessed: 09/18/24 Feeling nervous, anxious, or on edge: 0 = Not at all Not being able to stop or control worryin = Not at all Worrying too much about different things: 0 = Not at all Trouble relaxin = Several days Being so restless that it is hard to sit still: 0 = Not at all Becoming easily annoyed or irritable: 0 = Not at all Feeling afraid as if something awful might happen: 0 = Not at all Total SERENA-7 score (0-4 normal; 5-9 mild; 10-14 moderate; 15-21 severe): 1 Source: Developed by Drs. Tariq Hdz, Zonia Hays, Matt Saxena and colleagues, with an educational snehal from [email or web address]. SERENA-7 Assessment Billing SERENA-7 Assessment Tool: SERENA-7 Assessment 21489 Review of Systems Const All systems reviewed & are unremarkable except as noted in HPI and below Eyes Reports no additional complaints ENT Reports no additional complaints Card Reports no additional complaints Resp Reports no additional complaints GI Reports no additional complaints Reports no additional complaints Musc Reports no additional complaints Physical exam (Primary Care) Vital Signs: Last Vital Signs Temp 97.8 F 09/18/24 13:25 Pulse 74 09/18/24 13:25 BP 108/64 09/18/24 13:25 Pulse Ox 96 09/18/24 13:25 Oxygen Delivery Method Room Air 09/18/24 13:25 BMI result Body Mass Index 37.0 Tobacco/Smoking Status: Tobacco use Status Tobacco use date assessed 09/18/24 09/18/24 13:33 Patient Tobacco Use Status Never used Tobacco 09/18/24 13:26 e-Cigarette/Vaping Use Never Used 09/18/24 13:26 PHQ-9: PHQ-9 Score PHQ-9: Total score 2 09/18/24 13:33 Depression Screening Interpretation: Negative Thrive Assessment: Date of Thrive Assessment Date Thrive assessed 09/18/24 09/18/24 13:33 Currently or been in a relationship where the following occur: No concerns reported Const General: no acute distress HENMT Head: Yes normal to inspection General nose exam: Normal external nose present Throat: Yes posterior oropharynx normal Eyes General: appearance normal, both eyes and all related structures Neck Neck: Yes no lymphadenopathy and Yes supple Resp Effort & Inspection: normal respiratory effort Auscultation: clear to auscultation bilaterally Cardio Rhythm: regular rhythm Heart sounds: S1 normal heart sound present and S2 normal heart sound present GI Inspection: Yes normal to inspection Palpation (GI): Soft to palpation Percussion: Yes normal to percussion Auscultation: normal bowel sounds Results AMB Hemoglobin A1c AMB Hemoglobin A1c 6.8 % Last Edit by NARENDRA Laguerre on 09/18/24 13:5 6 Coding Level of Care Code Est Pt Level 4 (41668) Diagnoses Type 2 diabetes mellitus E11.9 HTN (hypertension) I10 Hyperlipidemia E78.5 Additional Codes SERENA-7 Assessment Billing - SERENA-7 Assessment Tool: SERENA-7 Assessment 62759 ([id number]) PHQ-9 - 57621 - PHQ-9 Billing: Yes ([id number]) Assessment & Plan Assessment & Plan (1) Type 2 diabetes mellitus: Comment: insulin dependent, Poorly controlled due to patient's noncompliance with diet, Trulicity caused nausea, patient can not afford Ozempic, she refused Dexcom monitor Code(s): E11.9 - Type 2 diabetes mellitus without complications Category: Medical Plan: A1c is 6.7, ADA diet regular exercise weight loss discussed with the patient she will continue the same medications (2) HTN (hypertension): Code(s): I10 - Essential (primary) hypertension Category: Medical Plan: Continue current medications (3) Hyperlipidemia: Code(s): E78.5 - Hyperlipidemia, unspecified Category: Medical Plan: Continue statin follow-up in 4 months with a fasting labs before Orders: Orders Complete Blood Count Auto Diff 4 Months E11.9 - Type 2 diabetes mellitus without complications, E78.5 - Hyperlipidemia, unspecified, I10 - Essential (primary) hypertension Lipid Panel 4 Months E11.9 - Type 2 diabetes mellitus without complications, E78.5 - Hyperlipidemia, unspecified, I10 - Essential (primary) hypertension Hemoglobin A1c 4 Months E11.9 - Type 2 diabetes mellitus without complications, E78.5 - Hyperlipidemia, unspecified, I10 - Essential (primary) hypertension AMB Hemoglobin A1c Today Z13.9 - Encounter for screening, unspecified Comprehensive [place]. Panel Fast 4 Months E11.9 - Type 2 diabetes mellitus without complications, E78.5 - Hyperlipidemia, unspecified, I10 - Essential (primary) hypertension Microalbumin, Random (w Creat) 4 Months E11.9 - Type 2 diabetes mellitus without complications, E78.5 - Hyperlipidemia, unspecified, I10 - Essential (primary) hypertension Medications: Changed From insulin degludec (Tresiba FlexTouch U-200 insulin) 80 units (0.4 mL) subcut BEDTIME 36 mL 3RF To insulin degludec (Tresiba FlexTouch U-200 insulin) 60 units (0.3 mL) subcut BEDTIME 36 mL 3RF Discontinued semaglutide (Ozempic) Discontinued Reason: Doctor's Order 2 mg (0.75 mL) subcut QWEEK 9 mL 3RF
== END 2024-09-18 14:12 | disposition home or self-care (01) ==
LOC: HO.HMCC 13:23
PROVIDERS: PCP Internal Medicine; Visit Provider Internal Medicine
DX: E11.9 Type 2 diabetes mellitus without complications (principal); I10 Essential (primary) hypertension; E78.5 Hyperlipidemia, unspecified; Z13.9 Encounter for screening, unspecified

== ENCOUNTER → 2024-09-18 13:22 | Outpatient (BNVA) | payer MEDICARE, SELFPAY | PROVIDERS: PCP Internal Medicine; Visit Provider Internal Medicine | DX: E11.9 Type 2 diabetes mellitus without complications (principal); I10 Essential (primary) hypertension; E78.5 Hyperlipidemia, unspecified | CPT/HCPCS: 83036; 96127; 99212 ==

== ENCOUNTER 2025-01-20 12:35 | Outpatient (AMB) | payer MEDICARE, SELFPAY ==
[2025-01-20 12:38] VITALS: BP 140/70; PULSE 68; O2SAT 96; BMI 38.0
--- NOTE | 2025-01-20 12:38 | MHC.PC.OV ---
Vital Signs 01/20/25 12:38 Height 5 ft 3.5 in Weight 218 lb BMI 38.0 BP 140/70 H Blood Pressure Location Lt brachial Position Sitting Pulse 68 Pulse Source Pulse Oximeter Pulse Oximetry (%) 96 Oxygen Delivery Method Room Air Intake Visit Reasons: 4m follow up Intake Note: pt is here for 4 mon f.up with labs (requested lab report from lab [facility]) Allergies empagliflozin (From Jardiance) Adverse Reaction (Intermediate, Verified 01/20/25 12:39) Candidiasis dulaglutide (Trulicity) Adverse Reaction (Unknown, Verified 01/20/25 12:39) abd pain, nausea Medication List - Last Reconciled 01/20/25 by Laura Lagos MD albuterol sulfate 90 mcg/actuation 2 puffs inhalation Q6H PRN 30 days amlodipine 5 mg PO DAILY blood sugar diagnostic (FreeStyle Lite Strips) Use to test blood sugar three times daily blood-glucose meter (FreeStyle Lite Meter kit) As directed citalopram 20 mg PO DAILY insulin degludec (Tresiba FlexTouch U-200 insulin) 60 units (0.3 mL) subcut BEDTIME irbesartan 300 mg PO DAILY lancets (BD Ultra-Fine II Lancets) Use to test blood sugar three times daily metformin 1,000 mg PO BID pen needle, diabetic (BD Ultra-Fine Mini Pen Needle) 1 ea subcut DAILY pravastatin 40 mg PO DAILY Tobacco use date assessed: 09/18/24 Fall risk assessment: No Falls in past year Last assessed Fall Risk: 01/20/25 Dental Screening Dental Screen Date: 09/18/24 HPI 4m follow up HPI Details Pt presents for f/u IDDM, HTN, hyperlipidemia. Patient has not been compliant with ADA diet eating a lot of fruits and sweets. [facility] Medical History Colonoscopy refused Hip pain, bilateral Cervical radiculopathy Myalgia Normal Pap smear Obstructive sleep apnea Annual physical exam Depression Overweight Hyperlipidemia HTN (hypertension) Type 2 diabetes mellitus Surgical History H/O colonoscopy No pertinent past surgical history Family History Father No problems noted. Mother No problems noted. Social History Housing: House Alcohol intake: never Patient Tobacco Use Status: Never used Tobacco e-Cigarette/Vaping Use: Never Used service: No Current occupational status: employed Cognitive needs: No Hearing needs: No Vision needs: Yes Questionnaire Thrive Questionnaire Date Thrive assessed: 09/18/24 I am a: Patient What is your living situation today?: I have a steady place to live Within the past 12 months, did the food you bought not last and you didn't have the money to get more?: Never true Within the past 12 months, did you worry whether your food would run out before you got money to buy more?: Never true Do you have trouble paying for medicines?: Yes Do you have trouble getting transportation to medical appointments?: No Do you have trouble paying your heating and electricity bill?: No Do you have trouble taking care of your child, family member or friend?: No Do you have trouble with day-to-day activities such as bathing, preparing meals, shopping, managing finances, etc.?: No Are you currently unemployed and looking for a job?: No Are you interested in more education?: No Please select the resources that you would like help with: None Currently or been in a relationship where the following occur: No concerns reported THRIVE Score: 0 SERENA-7 AMB Questionnaire SERENA-7 Date SERENA - 7 assessed: 09/18/24 Source: Developed by Drs. Tariq Hdz, Zonia Hays, Matt Saxena and colleagues, with an educational snehal from [employer]. Review of Systems Const All systems reviewed & are unremarkable except as noted in HPI and below ENT Reports no additional complaints Card Reports no additional complaints Resp Reports no additional complaints GI Reports no additional complaints Reports no additional complaints Physical exam (Primary Care) Vital Signs: Last Vital Signs Pulse 68 01/20/25 12:38 BP 140/70 H 01/20/25 12:38 Pulse Ox 96 01/20/25 12:38 Oxygen Delivery Method Room Air 01/20/25 12:38 BMI result Body Mass Index 38.0 Tobacco/Smoking Status: Tobacco use Status Tobacco use date assessed 09/18/24 01/20/25 12:38 Patient Tobacco Use Status Never used Tobacco 01/20/25 12:38 e-Cigarette/Vaping Use Never Used 01/20/25 12:38 Thrive Assessment: Date of Thrive Assessment Date Thrive assessed 09/18/24 01/20/25 12:38 Currently or been in a relationship where the following occur: No concerns reported Const General: no acute distress HENMT Head: Yes normal to inspection Throat: Yes posterior oropharynx normal Chest Chest palpation & inspection: normal inspection of the chest Cardio Rhythm: regular rhythm Heart sounds: S1 normal heart sound present and S2 normal heart sound present GI Inspection: Yes normal to inspection Palpation (GI): Soft to palpation Percussion: Yes normal to percussion Auscultation: normal bowel sounds General: Yes Bimanual renal exam normal bilaterally Coding Level of Care Code Est Pt Level 4 (27923) Diagnoses Type 2 diabetes mellitus E11.9 HTN (hypertension) I10 Hyperlipidemia E78.5 Assessment & Plan Assessment & Plan (1) Type 2 diabetes mellitus: Comment: insulin dependent, Poorly controlled due to patient's noncompliance with diet, Trulicity caused nausea, patient can not afford Ozempic, she refused Dexcom monitor Code(s): E11.9 - Type 2 diabetes mellitus without complications Category: Medical Plan: A1c is 10.6 from 6.4 in August, ADA diet regular exercise discussed with the patient. Ozempic was not covered by her insurance. Mounjaro 2.5 mg weekly will be started. Patient was advised to monitor her fasting blood glucose regularly continue metformin and Tresiba and follow-up in 3 months (2) HTN (hypertension): Code(s): I10 - Essential (primary) hypertension Category: Medical Plan: Continue current medications (3) Hyperlipidemia: Code(s): E78.5 - Hyperlipidemia, unspecified Category: Medical Plan: Continue statin Orders: Orders Hemoglobin A1c 3 Months E11.9 - Type 2 diabetes mellitus without complications, E78.5 - Hyperlipidemia, unspecified, I10 - Essential (primary) hypertension Comprehensive [place]. Panel Fast 3 Months E11.9 - Type 2 diabetes mellitus without complications, E78.5 - Hyperlipidemia, unspecified, I10 - Essential (primary) hypertension Lipid Panel 3 Months E11.9 - Type 2 diabetes mellitus without complications, E78.5 - Hyperlipidemia, unspecified, I10 - Essential (primary) hypertension Microalbumin, Random (w Creat) 3 Months E11.9 - Type 2 diabetes mellitus without complications, E78.5 - Hyperlipidemia, unspecified, I10 - Essential (primary) hypertension Medications: New Mounjaro (tirzepatide) 2.5 mg (0.5 mL) subcut QWEEK 2 mL 0RF NS Mounjaro (tirzepatide) 2.5 mg (0.5 mL) subcut QWEEK 2 mL 1RF NS Refilled blood sugar diagnostic (FreeStyle Lite Strips) Use to test blood sugar three times daily 300 ea 2RF E11.9 - Type 2 diabetes mellitus without complications
== END 2025-01-20 13:32 | disposition home or self-care (01) ==
LOC: HO.HMCC 12:36
PROVIDERS: PCP Internal Medicine; Visit Provider Internal Medicine
DX: E11.9 Type 2 diabetes mellitus without complications (principal); I10 Essential (primary) hypertension; E78.5 Hyperlipidemia, unspecified

== ENCOUNTER → 2025-01-20 12:35 | Outpatient (BNVA) | payer MEDICARE, SELFPAY | PROVIDERS: PCP Internal Medicine; Visit Provider Internal Medicine | DX: I10 Essential (primary) hypertension (principal); E78.5 Hyperlipidemia, unspecified; E11.9 Type 2 diabetes mellitus without complications; Z79.4 Long term (current) use of insulin | CPT/HCPCS: 99212 ==

== ENCOUNTER 2025-03-31 12:10 | Outpatient (AMB) | payer MEDICARE, SELFPAY ==
--- NOTE | 2025-03-31 12:20 | A.OFFPC_ITS ---
Vital Signs 03/31/25 12:23 Height 5 ft 3.5 in Weight 218 lb BMI 38.0 BP 130/70 Blood Pressure Location Lt brachial Position Sitting Pulse 78 Pulse Source Pulse Oximeter Temp 98.4 F Temp Source Oral Pulse Oximetry (%) 98 Oxygen Delivery Method Room Air Intake Visit Reasons: follow up Analog [employer] Required: No Accompanied by: Self / Same As Patient Allergies empagliflozin (From Jardiance) Adverse Reaction (Intermediate, Verified 03/31/25 12:27) Candidiasis tirzepatide (From Mounjaro) Adverse Reaction (Intermediate, Verified 03/31/25 15:38) Diarrhea dulaglutide (Trulicity) Adverse Reaction (Unknown, Verified 03/31/25 12:27) abd pain, nausea Medication List - Last Reconciled 03/31/25 by Laura Lagos MD Accu-Chek Guide Glucose Meter (blood-glucose meter) As directed NS Accu-Chek Guide test strips (blood sugar diagnostic) Test blood sugar 3 times per day NS Accu-Chek Softclix Lancets (lancets) Test blood sugar 3 times per day NS albuterol sulfate 90 mcg/actuation 2 puffs inhalation Q6H PRN 30 days amlodipine 5 mg PO DAILY citalopram 20 mg PO DAILY irbesartan 300 mg PO DAILY metformin 1,000 mg PO BID pen needle, diabetic (BD Ultra-Fine Mini Pen Needle) 1 ea subcut DAILY pravastatin 40 mg PO DAILY Tresiba FlexTouch U-200 (insulin degludec) 50 units (0.25 mL) subcut BID NS Tobacco use date assessed: 03/31/25 Fall risk assessment: No Falls in past year Last assessed Fall Risk: 03/31/25 Dental Screening Dental Screen Date: 03/31/25 Did you have a dental visit in the last 12 months?: Yes Did you have a dental problem in the last 6 months where you did not have access to dental care?: No Was dental information given to patient?: Patient has dentist HPI follow up HPI Details Patient presents for the follow-up of insulin-dependent diabetes poorly controlled due to noncompliance with the diet, hyperlipidemia hypertension. Patient reports fasting blood glucose around 120 but has not been monitoring her blood glucose more often. She admits not to following ADA diet eating lot of carbohydrates and sweets. Patient used to take Ozempic and her A1c was around 6 % but because of the change in formulary she has switch to Mounjaro but patient could not afford a high co-pay.. Patient is going to [facility] on vacation in 2 weeks. [facility] Medical History Colonoscopy refused Hip pain, bilateral Cervical radiculopathy Myalgia Normal Pap smear Obstructive sleep apnea Annual physical exam Depression Overweight Hyperlipidemia HTN (hypertension) Type 2 diabetes mellitus Surgical History H/O colonoscopy No pertinent past surgical history Family History Father No problems noted. Mother No problems noted. Social History Housing: House Alcohol intake: never Patient Tobacco Use Status: Never used Tobacco e-Cigarette/Vaping Use: Never Used service: No Current occupational status: employed Cognitive needs: No Hearing needs: No Vision needs: Yes Questionnaire PHQ-9 Over the last 2 weeks, how often have you been bothered by any of the following problems? 1. Little interest or pleasure in doing things: not at all 2. Feeling down, depressed, or hopeless: not at all 3. Trouble falling or staying asleep, or sleeping too much: several days 4. Feeling tired or having little energy: several days 5. Poor appetite or overeating: not at all 6. Feeling bad about yourself - or that you are a failure or have let yourself or your family down: not at all 7. Trouble concentrating on things, such as reading the newspaper or watching television: not at all 8. Moving or speaking so slowly that other people could have noticed. Or the opposite - being so fidgety or restless that you have been moving around a lot more than usual: not at all 9. Thoughts that you would be better off or of hurting yourself in some way: not at all Total score: 2 Depression Screening Interpretation: Negative Depression Screening Done: Yes 31406 - PHQ-9 Billing: Yes Source: Developed by Drs. Tariq Hdz, Zonia B.Matt Bullock and colleagues, with an educational snehal from [employer]. Thrive Questionnaire Date Thrive assessed: 09/18/24 I am a: Patient What is your living situation today?: I have a steady place to live Within the past 12 months, did the food you bought not last and you didn't have the money to get more?: Never true Within the past 12 months, did you worry whether your food would run out before you got money to buy more?: Never true Do you have trouble paying for medicines?: Yes Do you have trouble getting transportation to medical appointments?: No Do you have trouble paying your heating and electricity bill?: No Do you have trouble taking care of your child, family member or friend?: No Do you have trouble with day-to-day activities such as bathing, preparing meals, shopping, managing finances, etc.?: No Are you currently unemployed and looking for a job?: No Are you interested in more education?: No Please select the resources that you would like help with: None Currently or been in a relationship where the following occur: No concerns reported THRIVE Score: 0 SERENA-7 AMB Questionnaire SERENA-7 Date SERENA - 7 assessed: 03/31/25 Feeling nervous, anxious, or on edge: 0 = Not at all Not being able to stop or control worryin = Not at all Worrying too much about different things: 0 = Not at all Trouble relaxin = Not at all Being so restless that it is hard to sit still: 0 = Not at all Becoming easily annoyed or irritable: 0 = Not at all Feeling afraid as if something awful might happen: 0 = Not at all Total SERENA-7 score (0-4 normal; 5-9 mild; 10-14 moderate; 15-21 severe): 0 Source: Developed by Drs. Tariq Hdz, Matt Curtis and colleagues, with an educational snehal from [employer]. SERENA-7 Assessment Billing SERENA-7 Assessment Tool: SERENA-7 Assessment 21257 Review of Systems Const All systems reviewed & are unremarkable except as noted in HPI and below Eyes Reports no additional complaints ENT Reports no additional complaints Card Reports no additional complaints Resp Reports no additional complaints GI Reports no additional complaints Reports no additional complaints Physical exam (Primary Care) Vital Signs: Last Vital Signs Temp 98.4 F 03/31/25 12:23 Pulse 78 03/31/25 12:23 BP 150/70 H 03/31/25 12:23 Pulse Ox 98 03/31/25 12:23 Oxygen Delivery Method Room Air 03/31/25 12:23 BMI result Body Mass Index 38.0 Tobacco/Smoking Status: Tobacco use Status Tobacco use date assessed 03/31/25 03/31/25 12:28 Patient Tobacco Use Status Never used Tobacco 03/31/25 12:21 e-Cigarette/Vaping Use Never Used 03/31/25 12:21 PHQ-9: PHQ-9 Score PHQ-9: Total score 2 03/31/25 15:38 Depression Screening Interpretation: Negative Thrive Assessment: Date of Thrive Assessment Date Thrive assessed 09/18/24 03/31/25 12:21 Currently or been in a relationship where the following occur: No concerns reported Const General: no acute distress HENMT Head: Yes normal to inspection Throat: Yes posterior oropharynx normal Neck Neck: Yes no lymphadenopathy and Yes supple Resp Effort & Inspection: normal respiratory effort Auscultation: clear to auscultation bilaterally Cardio Rhythm: regular rhythm Heart sounds: S1 normal heart sound present and S2 normal heart sound present GI Inspection: Yes normal to inspection Palpation (GI): Soft to palpation Percussion: Yes normal to percussion Auscultation: normal bowel sounds Coding Level of Care Code Est Pt Level 4 (04926) Diagnoses HTN (hypertension) I10 Hyperlipidemia E78.5 Type 2 diabetes mellitus E11.9 Additional Codes SERENA-7 Assessment Billing - SERENA-7 Assessment Tool: SERENA-7 Assessment 06186 ([id number]) PHQ-9 - 90207 - PHQ-9 Billing: Yes ([id number]) Assessment & Plan Assessment & Plan (1) HTN (hypertension): Code(s): I10 - Essential (primary) hypertension Category: Medical Plan: cont meds (2) Hyperlipidemia: Code(s): E78.5 - Hyperlipidemia, unspecified Category: Medical Plan: cont Pravastatin (3) Type 2 diabetes mellitus: Comment: insulin dependent, Poorly controlled due to patient's noncompliance with diet, Trulicity caused nausea, patient can not afford Ozempic, she refused Dexcom monitor Code(s): E11.9 - Type 2 diabetes mellitus without complications Category: Medical Plan: A1c 10.5, ADA diet, regular exercise, increase Tresiba to 50 units bid. Pt could not tolerate Mounjaro (severe diarrhea). Pt's insurance will cover Ozempic starting May and she will start taking it. Pt will follow up in 3-4 months Orders: Orders Hemoglobin A1c 4 Months E11.9 - Type 2 diabetes mellitus without complications, E78.5 - Hyperlipidemia, unspecified, I10 - Essential (primary) hypertension Comprehensive [place]. Panel Fast 4 Months E11.9 - Type 2 diabetes mellitus without complications, E78.5 - Hyperlipidemia, unspecified, I10 - Essential (primary) hypertension Lipid Panel 4 Months E11.9 - Type 2 diabetes mellitus without complications, E78.5 - Hyperlipidemia, unspecified, I10 - Essential (primary) hypertension Complete Blood Count Auto Diff 4 Months E11.9 - Type 2 diabetes mellitus without complications, E78.5 - Hyperlipidemia, unspecified, I10 - Essential (frida preeti) hypertension Microalbumin, Random (w Creat) 4 Months E11.9 - Type 2 diabetes mellitus without complications, E78.5 - Hyperlipidemia, unspecified, I10 - Essential (primary) hypertension Medications: Changed From insulin degludec (Tresiba FlexTouch U-200 insulin) 60 units (0.3 mL) subcut BEDTIME 36 mL 3RF To Tresiba FlexTouch U-200 (insulin degludec) 50 units (0.25 mL) subcut BID 9 mL 3RF NS Discontinued Mounjaro (tirzepatide) Discontinued Reason: Duplicate 2.5 mg (0.5 mL) subcut QWEEK 2 mL 1RF NS
[2025-03-31 12:23] VITALS: BP 130/70; PULSE 78; TEMP 36.9; O2SAT 98; BMI 38.0
== END 2025-03-31 16:43 | disposition home or self-care (01) ==
LOC: HO.HMCC 12:11
PROVIDERS: PCP Internal Medicine; Visit Provider Internal Medicine
DX: I10 Essential (primary) hypertension (principal); E78.5 Hyperlipidemia, unspecified; E11.9 Type 2 diabetes mellitus without complications

== ENCOUNTER → 2025-03-31 12:10 | Outpatient (BNVA) | payer MEDICARE, SELFPAY | PROVIDERS: PCP Internal Medicine; Visit Provider Internal Medicine | DX: E11.9 Type 2 diabetes mellitus without complications (principal); E78.5 Hyperlipidemia, unspecified; I10 Essential (primary) hypertension; Z79.4 Long term (current) use of insulin | CPT/HCPCS: 96127; 99212 ==